=== PATIENT | female | born 1975 | race Caucasian/White ===

== ENCOUNTER → 2017-12-16 | Outpatient (CLI) | payer OTHER ==
--- NOTE | 2017-12-16 17:49 | KCIC ---
MRI of the cervical spine without contrast 12/16/2017 CLINICAL HISTORY: Neck pain which radiates down both arms. TECHNIQUE: Unenhanced T1-weighted, T2-weighted and inversion recovery sagittal and gradient echo and T2-weighted axial images of the cervical spine were obtained. FINDINGS: Minimal lateral curvature of the cervical spine is seen convex to the left. There is slight reversal of the normal cervical lordosis. Degenerative signal changes are seen involving all of the disks of the cervical spine. Degenerative signal changes are seen within the marrow surrounding these discs. No area of abnormal signal intensity is seen involving the cervical spinal cord. Rounded high signal intensity lesions are seen in the expected location of the right lobe of thyroid gland on the T2-weighted images. These measure 4 mm to 1 cm in size. These may represent a colloid cysts. At the C2-3 disc space there is a minimal generalized disc bulge. Superimposed on this disc bulge is a focal central disc protrusion. This measures 2 mm in AP diameter. Degenerative changes are seen involving the uncovertebral and facet joints bilaterally. These findings do not result in significant central spinal canal or neural foraminal stenosis. At the C3-4 disc space there is a mild to moderate generalized disc bulge. Superimposed on this disc bulge is a central/left paracentral focal disc protrusion. This measures 3 mm in AP diameter. Degenerative changes are seen involving the uncovertebral and facet joints bilaterally. These findings do not result in significant central spinal canal or neural foraminal stenosis. At the C4-5 disc space there is a mild generalized disc bulge. Degenerative changes are seen involving the uncovertebral and facet joints bilaterally. Superimposed on this disc bulge is a central/left paracentral focal disc protrusion. This measures 3 mm in AP diameter. These findings do not result in significant central spinal canal or neural foraminal stenosis. At the C5-6 disc space there is a mild to moderate generalized disc bulge. This is eccentric to the left. Superimposed on this disc bulge is a left paracentral focal disc protrusion. This measures 3 mm in AP diameter. Degenerative changes are seen involving the uncovertebral and facet joints bilaterally. These findings when combined efface the anterior CSF without resulting in significant central spinal canal stenosis. Mild bilateral neural foraminal stenosis is seen. At the C6-7 disc space there is a mild generalized disc bulge. Degenerative changes are seen involving the uncovertebral and facet joints bilaterally. These findings do not result in significant central spinal canal or neural foraminal stenosis. At the C7-T1 disc space there is a minimal generalized disc bulge. Degenerative changes are seen involving the facet joints bilaterally. These findings do not result in significant central spinal canal or neural foraminal stenosis. IMPRESSION: Degenerative changes are seen throughout the cervical spine. These findings do not result in significant central spinal canal stenosis at any level. Mild bilateral neural foraminal stenosis is seen at C5-6. Electronically signed by: Melvin Gomez MD (12/16/2017 5:45 PM) [id number]
== END | disposition home or self-care (01) ==
LOC: KCIC MRI 15:46
PROVIDERS: ATTEND Neuromusculoskeletal Medicine & OMM
DX: M48.02 Spinal stenosis, cervical region (principal); M47.892 Other spondylosis, cervical region; M50.222 Other cervical disc displacement at C5-C6 level; M54.12 Radiculopathy, cervical region
CPT/HCPCS: 72141

== ENCOUNTER → 2018-01-26 | Outpatient (CLI) | payer OTHER ==
--- NOTE | 2018-01-26 14:58 | RAD ---
Ultrasound-guided biopsy, right inferior thyroid nodule. 01/26/2018 INDICATION: Inferior right thyroid nodule. Discussion: The risks and benefits of procedure were discussed the patient. Informed was obtained. Timeout procedure was performed. Focused sonographic evaluation of the thyroid gland was performed. This demonstrates the targeted approximately 1.5 cm (transverse) solid nodule in the inferior thyroid with internal vascularity. No micro-calcification is identified on today's exam. New overlying skin was prepped and draped using sterile barrier technique. 1 percent lidocaine was administered for local anesthesia to the skin and subcutaneous tissues. 4 passes through the nodule were made under direct ultrasound guidance using 25-gauge needle. Samples were delivered to pathology was present at the time of study. Manual pressure was held. Repeat ultrasound demonstrated no hemorrhage or other complication. The patient tolerated the procedure well. Sterile dressings were applied. IMPRESSION: Ultrasound-guided fine-needle aspiration, solid nodule inferior right thyroid Electronically signed by: Epifanio Hunter MD (01/26/2018 2:55 PM) [id number]
== END | disposition home or self-care (01) ==
LOC: US 15:20
PROVIDERS: ATTEND Surgery
DX: E04.1 Nontoxic single thyroid nodule (principal)
CPT/HCPCS: 10022; 60300; 76942